=== PATIENT | female | born 1940 | race Caucasian/White ===

== ENCOUNTER 2019-07-24 08:17 | Inpatient (IN) | payer OTHER ==
[2019-07-06 12:50] LABS: HEMATOCRIT 40.4 % (37.0-47.0); MCH 30.9 pg (26.0-34.0); MCHC 34.6 g/dL (28.0-37.0); MCV 89.4 fL (80.0-100.0); RBC 4.52 mil/uL (4.20-5.00); RDW 13.4 % (10.5-14.5); WBC 7.1 thou/uL (4.0-11.0)
[2019-07-06 13:01] LABS: PROTIME 9.4 Seconds (9.3-11.4)
[2019-07-06 13:02] LABS: ALBUMIN 4.1 g/dL (3.4-5.0); CALCIUM 9.7 mg/dL (8.5-10.1); CREATININE 0.8 mg/dL (0.6-1.0); POTASSIUM 4.4 mmol/L (3.5-5.1)
[2019-07-06 13:03] LABS: URINE BILIRUBIN NEGATIVE (Negative); URINE BLOOD NEGATIVE (Negative); URINE CLARITY CLEAR; URINE COLOR YELLOW; URINE GLUCOSE-RANDOM* NEGATIVE (Negative); URINE KETONES NEGATIVE (Negative); URINE LEUKOCYTES-REFLEX TRACE (Negative); URINE NITRITE-REFLEX NEGATIVE (Negative); URINE PROTEIN (DIPSTICK) NEGATIVE (Negative); URINE SPECIFIC GRAVITY <= 1.005 (1.005-1.035); URINE UROBILINOGEN 0.2 E.U./dl (0.2-1.0)
--- NOTE | 2019-07-06 16:16 | EKG ---
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 : 1940 Requested By: Mirza Martell Order Number: [id number] MD: Sarabjit Garcia Measurements Intervals [place] Rate: 84 P: 44 IA: 174 QRS: -21 QRSD: 96 T: 58 QT: 386 QTc: 457 Interpretive Statements Sinus rhythm No significant abnormality No previous ECG available for comparison Electronically Signed On 07-06-2019 16:16:38 CDT by Sarabjit Garcia [email or web address] ��������������������������������������������� <ELECTRONICALLY SIGNED> ���������������������������������������� By: Sarabjit Garcia MD, [facility] ��������������������������������������������� 07/06/19 1616 1258 [id number] Sarabjit Garcia MD, FACC /EPI
[~2019-07-24] VITALS: Ht 170.2 cm; Wt 66.7 kg
[~2019-07-24 08:17] MED LIST: ASPIRIN325 PO; MULTIVITAMINS1 EAC7 PO; TYLENOL EXTRA500 MG PO; ZOLOFT50 MG PO
[2019-07-24 09:18] VITALS: BP 158/73
[2019-07-24 18:00] VITALS: BP 145/75
[2019-07-24 19:20] VITALS: BP 140/68
--- NOTE | 2019-07-24 21:18 | NUR ---
PATIENT ALERT AND ORIENTED WITH AND DAUGHTER AT BEDSIDE WHEN ARRIVING ON 4W ABOUT 1800 AND NOT EXPERIENCING ANY PAIN AND REQUESTING A DINNER TRAY. VITAL SIGNS STABLE AND DRESSING DRY, CLEAN INTACT WITH SAY DRESSING AND POLAR PACK. PATIENT DOES NOT TOLERATE C-PAP AT NIGHT.
[2019-07-24 23:30] VITALS: BP 119/61
--- NOTE | 2019-07-24 23:51 | NUR ---
MUSEUM EXHIBIT DESIGNER ACTIVATED FOR PATIENT "PASSING OUT" WHILE IN BATHROOM. ON ARRIVAL TO ROOM, PT A/0 X4 AND DENIES SYMPTOMS. PT DIAPHORETIC--BS AT 190. EKG TAKEN WITH NO NEW FINDINGS. VSS. SEE RAPID RESPONSE INTERVENTION FOR FURTHER DOCUMENTATION.
[2019-07-25 04:30] VITALS: BP 115/55
--- NOTE | 2019-07-25 04:36 | NUR ---
ASSUMED CARE AROUND 1899. AXOX4. FAMILY AT BEDSIDE. RKNEE DRESSING CDI. AROUND 2314, PT WANTED TO GET UP TO USE THE RESTROOM. SINCE PT WAS MEDFCIATED FOR PAIN AND SLEEP AID, RECOMMENDED BSC. PT WAS VERY ADAMENT ABOUT USING THE TOILET. WITH GAIT BELT AND WALKER AND ASSIST WITH 2 PPL, PT AMBULATED TO BATHROOM AND WAS ABLE TO VOID. WHEN PT COMPLETED VOIDING, PT VERBALIZED THAT PT WAS DIZZY AND SEEING SPOTS. ATTEMPTED TO USE INTERVENTION TO LESSEN THE DIZZINESS, PT LOST CONSIOUSNESS ON TOILET. PULSE AND BREATHING PRESENT THE ENITRE EPISODE. CALLED RAPID REPONSE. TRNASFERRED PT BACK TO BED WITH 4 PEOPLE ASSISDT AND W.C. PT BECAME CONSIOUS SOON TRANSFERRED TO BED. PT THINKS SHE FELL ASLEEP IN THE TOILET THAT SHE'S DOING ALRIGHT. PT ALSO DENIED ANY PAIN OR CHEST PAIN, NASUEA WHEN LOC RETURED TO NORM. SIMULATION TECH ARRIVED AT THAT TIME ALSO. VSS,BLOOD GLUCOSE STABLE.STAT EKG OBTAINED PER SIMULATION TECH'S DIRECTION. AFTER RAPID RESPONSE, WAS PAGED AND UPDATED ON SYNCOPAL EPISODE. NO NEW ORDERS FROM AT THIS TIME. WILL CONT TO MONITOR FOR ANY CHANGES IN CONDITION.
[2019-07-25 05:56] LABS: HEMATOCRIT 37.4 % (37.0-47.0); HEMOGLOBIN 12.3 gm/dL (12.0-15.0); MCH 30.3 pg (26.0-34.0); MCHC 32.9 g/dL (28.0-37.0); MCV 91.9 fL (80.0-100.0); RBC 4.07 mil/uL (4.20-5.00); RDW 13.8 % (10.5-14.5); WBC 11.9 thou/uL (4.0-11.0)
[2019-07-25 07:57] VITALS: BP 121/66
--- NOTE | 2019-07-25 14:08 | EKG ---
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 : 1940 Requested By: Mirza Martell Order Number: [id number] MD: Madhu Smith Measurements Intervals [place] Rate: 87 P: 46 MS: 181 QRS: 2 QRSD: 97 T: 52 QT: 403 QTc: 485 Interpretive Statements Sinus rhythm Consider left atrial enlargement Baseline wander in lead(s) V5 Compared to ECG 07/06/2019 12:58:52 No significant changes Electronically Signed On 07-25-2019 14:08:16 CDT by Madhu Smith [email or web address] ��������������������������������������������� <ELECTRONICALLY SIGNED> ���������������������������������������� By: Madhu Smith MD ��������������������������������������������� 07/25/19 1408 2340 2340 Madhu Smith MD /EPI
[2019-07-25 15:42] VITALS: BP 128/66
--- NOTE | 2019-07-25 16:41 | NUR ---
PT ADMITTED RELATED TO RIGHT TOTAL KNEE REPLACEMENT. CM REVIEWED CHART AND SPOKE WITH CARE TEAM. CM MET WITH PT AND SPOUSE AT BEDSIDE THIS DAY. PT IS A&O X4. CM ROLE INTRODUCED. PT INDICATED SHE LIVES IN A HOUSE WITH HER SPOUSE WITH 2 STEPS TO ENTER. 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 PT NEEDS A FWW FOR DC CM ORDERED IT THROUGH [employer]. PT IS ESTABLISHED WITH OP PT AT [facility]. PT ANTICPATES RETURN HOME TODAY. NO OTHER CM INTERVENTION INDICATED. CASE CLOSED.
[2019-07-25] MEDS ORDERED: NEURONTIN 300300 M1 PO (17:11)
[2019-07-25] MEDS ORDERED: ASPIR 8181 MG PO (17:11)
[2019-07-25 17:31] VITALS: BP 128/66
--- NOTE | 2019-07-25 18:08 | NUR ---
Patient was educated on all Discharge Instructions before verbalizing an nderstanding and signing them. LSCTA, ABD soft et non-tender, BS x's 4. Dresssing to incision is clean, dry et intact (all other skin areas are clean, warm, dry et intact). Patient was given Hydrocodone 5/325mg po for level 8 pain to right knee prior to Discharging. Patient Dischared with and daughter and left in a wheelchair. Discharge time is 1814.
--- NOTE | 2019-07-27 09:08 | O ---
[facility] [place] [address] OPERATIVE REPORT Name: DIANA THOMPSONNI Room #: 453-P [facility] IN M.R.#: [id number] Admission: 07/24/19 ������������������ Attend Phys: Mirza Martell MD Discharge: 07/25/19 ������������������ Date of : 36 Report #: [id number] THIS REPORT FOR: //name// CC: SHEA KING Physician staff Mirza Martell DATE OF SERVICE: 07/24/2019 PREOPERATIVE DIAGNOSIS: Right knee osteoarthritis. POSTOPERATIVE DIAGNOSIS: Right knee osteoarthritis. PROCEDURE: Right total knee arthroplasty using Navio robotic assistance. SURGEON: Mirza Martell MD. MULE DEVELOPER: Tati Morgan PA-C. INDICATIONS FOR MULE DEVELOPER: Throughout the case, extensive retraction and manipulation of the knee was required. This was afforded to me by my electrician assistant. ANESTHESIA: LMA with an adductor canal block. IMPLANTS USED: Das and Nephew size 4 Legion cobalt chrome posterior stabilized femur, size 4 tibia, size 13 highly constrained polyethylene and size 32 patella. TOURNIQUET TIME: 58 minutes. ESTIMATED BLOOD LOSS: 25 mL. COMPLICATIONS: None. SPECIMENS: None. CONDITION UPON LEAVING THE OPERATING ROOM: Stable. INDICATIONS FOR PROCEDURE: The patient is an 78-year-old female with severe right knee osteoarthritis. She failed conservative measures for this and after discussion with her, she elected for right total knee arthroplasty. DESCRIPTION OF PROCEDURE: Risks, benefits, alternatives, complications were discussed in detail with the patient including but not limited to risk of anesthesia, risk of damage to nerves, arteries, blood vessels, risk for infection, bleeding, risk for continued knee pain, need for reoperation. [facility] [address] [place] [address] OPERATIVE REPORT Name: BROOKLYN THOMPSON Room #: 453-P DIS IN M.R.#: [id number] Admission: 07/24/19 ������������������ Attend Phys: Mirza Martell MD Discharge: 07/25/19 ������������������ Date of : 36 Report #: [id number] Informed consent was obtained from the patient. Right knee was appropriately marked in the preoperative holding area. IV Ancef was given for preoperative antibiotics. She was brought to the operating room and placed in supine position on operating room table. LMA anesthesia was induced without complication. Tourniquet was placed on the right thigh. Right lower extremity was prepped and draped in normal sterile fashion. Timeout was performed properly identifying the patient and procedure as well as the instrumentation and the implants. All in the operating room were in agreement. Right lower extremity was exsanguinated, tourniquet was inflated. Tourniquet time was 58 minutes. Standard midline approach to knee was made with #10 blade through the skin. Dissection was taken down sharply to the fascia, deep flaps were developed medially and laterally. Fresh 10 blade was used to make a medial parapatellar arthrotomy and the knee was inspected. There was severe tricompartment osteoarthritis. ACL and PCL were removed sharply. Reference pins were placed in the femur and the tibia and the knee was digitally mapped using the [email or web address] robotic system. Intraoperative plan was made and we sized the size 4 femur and a size 4 tibia with a size 11 spacer. After acceptance of the intraoperative plan, the distal femoral cut was made with a Navio bur. The 4-in-1 cutting block was placed. Anterior, posterior and chamfer cuts were made. Attention was turned to the tibia. Remainder of the menisci removed with Bovie cautery. Tibial resection guide was pinned in place using a Navio for placement. Tibial resection was made. The tibia was sized, found to be a size 4. Size 4 tibial trial was placed, pinned and punched. Size 4 femoral trial was placed and the box cut was made. This was then trialed with an 11 and then up to a size 13 polyethylene, at which point, there was found to have good balance medially and laterally throughout range of motion; however, there was some laxity laterally and deep flexion. It was felt we could make up for this with a highly constrained implant. After this, trial components were removed. Bony ends were thoroughly irrigated with normal saline. A final size 4 tibia, size 4 Legion cobalt chrome posterior stabilized femur and a size 32 patella were cemented in place using standard cementation techniques. While the cement cured, a periarticular injection consisting of morphine, ropivacaine, epinephrine and Toradol was placed around the knee joint capsule. After the cement cured, tourniquet was deflated. Hemostasis was obtained with Bovie cautery. A final size 13 highly constrained polyethylene was placed. A gram of vancomycin was placed deep in the joint. The fascia was closed with 0 Vicryl, skin was closed with 2-0 Vicryl, 3-0 Monocryl. Dermabond and a SAY dressing were applied. The patient tolerated this procedure well and went to the recovery room under care of Anesthesia postoperatively. ��������������������������������������������� <ELECTRONICALLY SIGNED> ���������������������������������������� By: Mirza Martell MD ��������������������������������������������� 07/27/19 0908 14 32 Mirza Martell MD /nt
== END 2019-07-25 18:29 | disposition home or self-care (01) | DRG 470 ==
LOC: 4W 08:17 → TBA 08:17 → PRE 10:27 → 4W 18:43 → ENTRNSPT 07-25 18:05 → 4W 07-25 18:29
PROVIDERS: ADMIT Orthopaedic Surgery
PROC: 8E0Y0CZ Robotic Assisted Procedure of Lower Extremity, Open Approach (ICD-10-PCS; principal; 2019-07-24)
PROC: 0SRC0J9 Replacement of Right Knee Joint with Synthetic Substitute, Cemented, Open Approach (ICD-10-PCS; principal; 2019-07-24)
DX: M17.11 Unilateral primary osteoarthritis, right knee (principal); F32.9 Major depressive disorder, single episode, unspecified; G47.30 Sleep apnea, unspecified; Z85.3 Personal history of malignant neoplasm of breast; Z90.89 Acquired absence of other organs; Z79.899 Other long term (current) drug therapy; Z90.710 Acquired absence of both cervix and uterus; Z79.82 Long term (current) use of aspirin
CPT/HCPCS: 10047; 50010; 50101; 50415; 50954; 51130; 51225; 51320; 51771; 52001; 52282; 53078; 53364; 54118; 56527; 56528; 57095; 57103; 57104; 57110; 57127; 57180; 62110; 62900; 64039; 70005